=== PATIENT | female | born 1975 | race Caucasian/White ===

== ENCOUNTER 2020-04-14 12:00 | Emergency (ER) | payer BC, SELFPAY ==
[2020-04-14 12:02] VITALS: BP 156/88; PULSE 90; RESP 18; TEMP 36.4; O2SAT 99; BMI 20.7
--- NOTE | 2020-04-14 12:24 | HMH.EDGENADL ---
ED Disposition Clinical Impression: Odontalgia, Dental caries, Dental infection Disposition: Home, Self-Care Condition on Discharge: Good Instructions: DI for Tooth Decay, DI for Dental Pain, Tooth Abscess Additional Instructions: Penicillin as prescribed. Tylenol or ibuprofen for pain. Additional instructions for DENTAL PROBLEMS: See a dentist as soon as possible for further evaluation. Return immediately if you have an uncontrollable fever greater than 102 degrees, difficulty breathing or shortness of breath, persistent vomiting, or inability to swallow. Prescriptions: Penicillin V Potassium 500 mg PO QID #40 tab Transmission Status: Pending to [facility] Referrals: Nicki Jiménez [Primary Care Provider] - - Critical Care Critical Care Time: No Attestation: On , the high probability of a clinically significant, sudden or life threatening deterioration of the following system(s) required my full and direct attention, intervention and personal management. The time I documented below is in addition to time spent performing reported procedures but includes the following listed in this critical care notation. Medical Decision Making - [place] Inquiry Pt receiving controlled substance: No Vital Signs: 04/14/20 12:02 Temperature 97.5 F L Temperature Source Oral Pulse Rate [Right] 90 Respiratory Rate 18 Blood Pressure [Right Arm] 156/88 H Blood Pressure Mean [Right Arm] 110 02 Sat by Pulse Oximetry 99 Orders (Tests/Meds): ED MEDICATIONS Discontinued Medications Generic Name Dose Route Start Last Admin Trade Name Freq PRN Reason Stop Dose Admin Benzocaine/Butamben/Tetracaine HCl 1 gm 04/14/20 12:13 Cetacaine [place] TP 04/14/20 12:14 ONCE ONE Lidocaine HCl 15 ml 04/14/20 12:13 Lidocaine 2% Viscous Solution 15ml Udc PO 04/14/20 12:14 ONCE ONE General Adult HPI - General Chief complaint: Dental/Oral Stated complaint: Tooth infection Time Seen by Provider: 04/14/20 12:24 Mode of Arrival: Ambulatory Limitations: No Limitations Description of Symptoms (Recalled from ER Triage Doc. by RN): Tooth infection on the right side since yesterday. - History of Present Illness HPI narrative: Complains of right mandibular toothache and swelling of the jaw that began yesterday. She has a dental appointment for April 22 in [place]. She would like antibiotics. She says she had an appointment to have her tooth fixed in December, but then the COVID lockdown began. Denies fever. No trouble breathing or swallowing. - Related Data Previous Rx's Medication Instructions Recorded amoxicillin 500 mg capsule 500 mg PO Q12H 10 Days #20 cap 01/04/20 Penicillin V Potassium 500 mg PO QID #40 tab 04/14/20 Allergies Allergy/AdvReac Type Severity Reaction Status Date / Time duloxetine [From Cymbalta] Allergy Verified 01/04/20 11:37 [facility] History - Hepatitis A Screen Drug use history?: No High risk sexual behaviors?: No History of sexually transmitted infection?: No Currently employed?: No Childcare worker?: No Do you have indoor plumbing?: Yes Do you have electricity?: Yes Attestation statement:: This patient has been screened for Hepatitis A risk factors. I have reviewed the patient's past medical history: Yes Medical History: Reports:: Depression Other Surgeries: Yes: No Previous Surgery - Social History Smoking Status: Current every day smoker Tobacco Type: cigarettes Alcohol Intake: never Substance Use Type: denies use Occupational Status: unemployed Housing: house Household Members: family - Psychiatric History Pschychiatric History:: Reports:: Depression Family Hx:: No significant family history ROS Obtained: Yes Systems reviewed as appropriate & no additional complaints - Constitutional Constitutional: Denies fever(s) - ENT Ears, Nose, Mouth, and Throat: Reports dental pain Physical Exam - General General appearance: alert, in
[2020-04-14 12:48] VITALS: BP 156/88; PULSE 90; RESP 18; TEMP 36.4; O2SAT 99
== END 2020-04-14 12:49 | disposition home or self-care (01) ==
PROVIDERS: Emergency Provider Emergency Medicine; PCP Family Medicine
DX: K04.7 Periapical abscess without sinus (principal); K02.9 Dental caries, unspecified
CPT/HCPCS: 99281

== ENCOUNTER 2020-12-23 16:55 | Emergency (ER) | payer BC, SELFPAY ==
[2020-12-23 17:00] VITALS: BP 128/87; PULSE 85; RESP 20; TEMP 36.8; O2SAT 97; BMI 21.6
--- NOTE | 2020-12-23 17:19 | HMH.EDUTC ---
[facility] [place] Clinical Impression: Corneal abrasion Qualifiers: Encounter type: initial encounter Laterality: right Qualified Code(s): S05.01XA - Injury of conjunctiva and corneal abrasion without foreign body, right eye, initial encounter Disposition: Home, Self-Care Condition on Discharge: Good Instructions: DI for Corneal Abrasion Prescriptions: Ofloxacin [Ocuflox 0.3% OPHTH drops 5mL] 5 ml OP QID 7 Days #1 bottle Transmission Status: Pending to [facility] Referrals: Nicki Jiménez [Primary Care Provider] - Forms: Work/School Release Time of Disposition: 17:23 Medical Decision Making - [place] Inquiry Pt receiving controlled substance: No Vital Signs: 12/23/20 17:00 Temperature 98.2 F Temperature Source Oral Pulse Rate [Right Brachial] 85 Respiratory Rate 20 Blood Pressure [Right Arm] 128/87 Blood Pressure Mean [Right Arm] 100 Blood Pressure Source [Right Arm] Automatic Cuff Blood Pressure Position [Right Arm] Sitting 02 Sat by Pulse Oximetry 97 Oxygen Delivery Method Room Air [facility] [place] - General Stated complaint: R eye Irritation Time Seen by Provider: 12/23/20 17:19 Mode of Arrival: Ambulatory Source of Information: Patient Limitations: No Limitations Description of Symptoms (Recalled from Triage Doc. by RN): PATIENT C/O RIGHT EYE IRRITATION SINCE THIS MORNING. SHE DOESN'T RECALL GETTING ANYTHING IN IT, BUT SHE WAS PAINTING YESTERDAY HEENT Symptoms (Recalled from RN notes): Yes Resp Symptoms (Recalled from RN notes): No Skin Symptoms (Recalled from RN notes): No MS Symptoms (Recalled from RN notes): No Functional Status (Recalled from RN notes): WNL - History of Present Illness Provider Complaint: Right eye irritation after painting yesterday. Doesn't recall anything injuring it but has been dry and itchy today. Has been watering and she couldnt drive because she couldn't keep her eye open. Tried Visine and it was painful. Onset (ago): day(s) (1) Location: eyes Relieving factors: none Exacerbating factors: none Treatments prior to arrival: none - Related Data Previous Rx's Medication Instructions Recorded Ofloxacin [Ocuflox 0.3% OPHTH 5 ml OP QID 7 Days #1 bottle 12/23/20 drops 5mL] Allergies Allergy/AdvReac Type Severity Reaction Status Date / Time duloxetine [From Cymbalta] Allergy Verified 01/04/20 11:37 - Worker's Comp Is this a Worker's Comp case?: No [facility] History - Hepatitis A Screen Drug use history?: No High risk sexual behaviors?: No History of sexually transmitted infection?: No Currently employed?: No Childcare worker?: No Do you have indoor plumbing?: Yes Do you have electricity?: Yes Attestation statement:: This patient has been screened for Hepatitis A risk factors. I have reviewed the patient's past medical history: Yes Medical History: Reports:: Depression Other Surgeries: Yes: No Previous Surgery - Social History Smoking Status: Current every day smoker Tobacco Type: cigarettes Alcohol Intake: never Substance Use Type: denies use Occupational Status: other Housing: house Household Members: family - Psychiatric History Pschychiatric History:: Reports:: Depression Family Hx:: No significant family history ROS Obtained: Yes All systems reviewed & no additional complaints - Eyes Eyes: Reports as per HPI Physical Exam - General General appearance: alert, in no apparent distress - Head Head exam: normocephalic - Expanded Eye Exam Sclera/Conjunctival: right: injection - Respiratory Respiratory exam: Present: normal lung sounds bilaterally - Cardiovascular Cardiovascular exam: Present: regular rate, normal rhythm - Neurological Exam Neurological exam: Present: alert, oriented X3 - Psychiatric Psychiatric exam: Present: normal affect, normal mood Procedures - Eye Exam/FB Removal Location: eye (R) Topical anesthetic used: tetracaine Fluorescein Stick(s) used: Yes Procedure performed under: d
[2020-12-23 17:25] VITALS: BP 128/87; PULSE 85; RESP 20; TEMP 36.8; O2SAT 97
== END 2020-12-23 17:30 | disposition home or self-care (01) ==
PROVIDERS: Emergency Provider Physician Assistant; PCP Family Medicine
DX: S05.01XA Injury of conjunctiva and corneal abrasion without foreign body, right eye, initial encounter (principal); F17.210 Nicotine dependence, cigarettes, uncomplicated; Z88.8 Allergy status to other drugs, medicaments and biological substances
CPT/HCPCS: 99202; G0463

== ENCOUNTER 2021-02-12 13:02 | Emergency (ER) | payer BC, SELFPAY ==
--- NOTE | 2021-02-12 13:26 | ED_ITS ---
[facility] [place] Disposition Clinical Impression: Sinusitis Qualifiers: Sinusitis location: maxillary Chronicity: acute Recurrence: non-recurrent Qualified Code(s): J01.00 - Acute maxillary sinusitis, unspecified Disposition: Home, Self-Care Condition on Discharge: Good Instructions: DI for Sinusitis Prescriptions: Amoxicillin/Potassium Clav [Augmentin 875-125 Tablet] 1 tab PO Q12H 10 Days #20 tab Transmission Status: Pending to [facility] predniSONE [Prednisone 20mg Tab] 20 mg PO BID 5 Days #10 tab Transmission Status: Pending to [facility] Referrals: Nicki Jiménez [Primary Care Provider] - Time of Disposition: 13:30 Medical Decision Making - [place] Inquiry Pt receiving controlled substance: No [facility] [place] HPI - General Stated complaint: head congestion Time Seen by Provider: 02/12/21 13:28 - History of Present Illness Provider Complaint: Sinus pain and pressure, congestion, dental pain X 2 weeks. Ears are painful and feel full. Throat is scratchy. No fever. Onset (ago): week(s) (2) Location: head, face Relieving factors: none Exacerbating factors: none Associated symptoms: denies other symptoms Treatments prior to arrival: none - Related Data Previous Rx's Medication Instructions Recorded Ofloxacin [Ocuflox 0.3% OPHTH 5 ml OP QID 7 Days #1 bottle 12/23/20 drops 5mL] Amoxicillin/Potassium Clav 1 tab PO Q12H 10 Days #20 tab 02/12/21 [Augmentin 875-125 Tablet] predniSONE [Prednisone 20mg 20 mg PO BID 5 Days #10 tab 02/12/21 Tab] Allergies Allergy/AdvReac Type Severity Reaction Status Date / Time duloxetine [From Cymbalta] Allergy Verified 01/04/20 11:37 [facility] History - Hepatitis A Screen Attestation statement:: This patient has been screened for Hepatitis A risk factors. I have reviewed the patient's past medical history: Yes Medical History: Reports:: Depression Other Surgeries: Yes: No Previous Surgery - Social History Smoking Status: Current every day smoker Tobacco Type: cigarettes Alcohol Intake: never Substance Use Type: denies use Occupational Status: other Housing: house Household Members: family - Psychiatric History Pschychiatric History:: Reports:: Depression Family Hx:: No significant family history ROS Obtained: Yes All systems reviewed & no additional complaints - ENT Ears, Nose, Mouth, and Throat: Reports headache(s), Reports nasal congestion, Reports sinus pain, Reports sore throat Physical Exam - General General appearance: alert, in no apparent distress - Head Head exam: normocephalic - Eye Eye exam: Present: PERRL - ENT ENT exam: Present: normal oropharynx - Expanded ENT Exam TM/Canal exam: Bilateral TM: erythema Nose exam: Present: sinus tenderness - Respiratory Respiratory exam: Present: normal lung sounds bilaterally - Cardiovascular Cardiovascular exam: Present: regular rate, normal rhythm - Neurological Exam Neurological exam: Present: alert, oriented X3 - Psychiatric Psychiatric exam: Present: normal affect, normal mood - Skin Skin exam: Present: warm, dry, intact
[2021-02-12 13:27] VITALS: BP 156/81; PULSE 91; RESP 16; TEMP 36.7; O2SAT 99; BMI 21.9
[2021-02-12 13:32] VITALS: BP 156/81; PULSE 91; RESP 16; TEMP 36.7; O2SAT 99
== END 2021-02-12 13:34 | disposition home or self-care (01) ==
PROVIDERS: Emergency Provider Physician Assistant; PCP Family Medicine
DX: J01.00 Acute maxillary sinusitis, unspecified (principal); F33.1 Major depressive disorder, recurrent, moderate
CPT/HCPCS: 99202; G0463

== ENCOUNTER → 2021-04-11 15:28 | Outpatient (POV) | payer BC, SELFPAY | PROVIDERS: Visit Provider Dermatology | DX: Z00.00 Encounter for general adult medical examination without abnormal findings (principal) ==

== ENCOUNTER 2021-04-12 04:34 | Emergency (ER) | payer BC, SELFPAY ==
[2021-04-12 04:40] VITALS: BP 174/97; PULSE 81; RESP 17; TEMP 36.6; O2SAT 97; BMI 22.4
--- NOTE | 2021-04-12 04:50 | HMH.EDDENT ---
ED Disposition Clinical Impression: Pain, dental Fracture of tooth Qualifiers: Encounter type: initial encounter Fracture type: closed Qualified Code(s): S02.5XXA - Fracture of tooth (traumatic), initial encounter for closed fracture Disposition: Home, Self-Care Condition on Discharge: Good Instructions: DI for Dental Pain Additional Instructions: see pcp and dentist for follow up Prescriptions: Ketorolac Tromethamine [Toradol 10mg tablet] 10 mg PO Q6HP PRN #10 tab MDD 40mg/day PRN Reason: Moderate To Severe Pain Transmission Status: Pending to [facility] Referrals: Nicki Jiménez [Primary Care Provider] - - Critical Care Critical Care Time: No Attestation: On 04/12/21, the high probability of a clinically significant, sudden or life threatening deterioration of the following system(s) required my full and direct attention, intervention and personal management. The time I documented below is in addition to time spent performing reported procedures but includes the following listed in this critical care notation. Medical Decision Making - Medical Records Medical records reviewed: Yes: I reviewed the patient's medical records. - [place] Inquiry Pt receiving controlled substance: No Vital Signs: 04/12/21 04:40 Temperature 97.8 F Temperature Source Oral Pulse Rate [Right Brachial] 81 Respiratory Rate 17 Blood Pressure [Right Arm] 174/97 H Blood Pressure Mean [Right Arm] 122 Blood Pressure Source [Right Arm] Automatic Cuff Blood Pressure Position [Right Arm] Sitting 02 Sat by Pulse Oximetry 97 Oxygen Delivery Method Room Air - Lab Data Lab results reviewed: Yes: I reviewed the patient's lab results. Orders (Tests/Meds): ED MEDICATIONS Discontinued Medications Generic Name Dose Route Start Last Admin Trade Name Freq PRN Reason Stop Dose Admin Lidocaine HCl 15 ml 04/12/21 04:46 Lidocaine 2% Viscous [place] 15ml Udc PO 04/12/21 04:47 ONCE ONE Medical Decision Narrative: please see dentist Dental HPI - General Chief complaint: Dental/Oral Stated complaint: broken tooth Time Seen by Provider: 04/12/21 04:45 Mode of Arrival: Family Vehicle Source of Information: Patient, Significant Other, Medical Record Limitations: No Limitations Description of Symptoms (Recalled from ER Triage Doc. by RN): left lower jaw dental fracture while eating cheerios last night. 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 - History of Present Illness HPI Narrative: has acute dental pain as she has lt lower dental fracture which occurred tonight assoc with eating MD Complaint: tooth pain Onset (ago): hour(s) Severity: moderate Treatment prior to arrival: none - Related Data Home Medications Medication Instructions Recorded Confirmed ALPRAZolam [Xanax 0.5mg tab] 0.5 mg PO TIDP PRN 04/12/21 04/12/21 Buspirone HCl [Buspar 10mg 10 mg PO BID 04/12/21 04/12/21 tablet] Previous Rx's Medication Instructions Recorded Ketorolac Tromethamine [Toradol 10 mg PO Q6HP PRN #10 tab MDD 04/12/21 10mg tablet] 40mg/day Allergies Allergy/AdvReac Type Severity Reaction Status Date / Time duloxetine [From Cymbalta] Allergy Verified 01/04/20 11:37 [facility] History - Hepatitis A Screen Drug use history?: No High risk sexual behaviors?: No History of sexually transmitted infection?: No Currently employed?: No Childcare worker?: No Do you have indoor plumbing?: Yes Do you have electricity?: Yes Attestation statement:: This patient has been screened for Hepatitis A risk factors. I have reviewed the patient's past medical history: Yes Medical History: Reports:: Depression Other Surgeries: Yes: No Previous Surgery - Social History Smoking Status: Never smoker Tobacco Type: cigarettes Alcohol Intake: never Substance Use Type: denies use Occupational Status: other Housing: house Household Members: family - Psychiatric History
[2021-04-12 04:58] VITALS: BP 168/88; PULSE 78; RESP 16; TEMP 36.6; O2SAT 98
== END 2021-04-12 05:04 | disposition home or self-care (01) ==
PROVIDERS: Emergency Provider Emergency Medicine; PCP Family Medicine
DX: S02.5XXA Fracture of tooth (traumatic), initial encounter for closed fracture (principal); K08.89 Other specified disorders of teeth and supporting structures
CPT/HCPCS: 96372; 99281

== ENCOUNTER → 2021-04-18 13:50 | Outpatient (POV) | payer BC, SELFPAY | PROVIDERS: Visit Provider Dermatology | DX: Z00.00 Encounter for general adult medical examination without abnormal findings (principal) ==

== ENCOUNTER 2021-09-24 15:03 | Emergency (ER) | payer BC, SELFPAY ==
[2021-09-24 15:34] VITALS: BP 0/0; PULSE 0; RESP 0; TEMP -17.7; TEMP 0
== END 2021-09-24 15:36 | disposition left against medical advice (07) ==
LOC: UTC 15:05
PROVIDERS: Emergency Provider Nurse Practitioner Family; PCP Family Medicine
DX: Z53.21 Procedure and treatment not carried out due to patient leaving prior to being seen by health care provider (principal)

== ENCOUNTER 2024-06-13 14:50 | Emergency (ER) | payer BC, SELFPAY ==
[2024-06-13 14:55] VITALS: BP 166/85; PULSE 110; RESP 20; TEMP 36.6; O2SAT 98; BMI 21.6
--- NOTE | 2024-06-13 15:10 | EXP.UTC ---
Discharge Plan Disposition Patient Disposition: Home, Self-Care Condition: Good Prescriptions Prescriptions: New ofloxacin 0.3 % drops 10 drp otic (ear) BID 7 Days Qty: 5 0RF sulfamethoxazole-trimethoprim [Bactrim DS] 800-160 mg tablet 1 tab PO Q12H Qty: 14 0RF fluconazole 150 mg tablet 150 mg PO Q3D Qty: 2 0RF Referrals Follow up/Referrals: Nicki Jiménez MD [Primary Care Provider] - See instructions Clinical Impressions Clinical Impression: Otitis externa Instructions Patient Instructions: DI for Otitis Externa Print Language Print Language: Georgian Discharge ED Provider: Pina Isaacs [facility] [place] HPI General Stated complaint: sore throat ear pain Mode of Arrival: Ambulatory Source of Information: Patient Limitations: No Limitations Time Seen by Provider: 06/13/24 15:13 Description of Symptoms (Recalled from Triage Doc. by RN): PATIENT C/O BILATERAL EAR PAIN THAT STARTED YESTERDAY HEENT Symptoms (Recalled from RN notes): Yes Resp Symptoms (Recalled from RN notes): No Skin Symptoms (Recalled from RN notes): No MS Symptoms (Recalled from RN notes): No Functional Status (Recalled from RN notes): WNL History of Present Illness Provider Complaint: Bilateral ear pain after wearing different ear plugs at work Onset (ago): day(s) (1) Relieving factors: none Exacerbating factors: none Associated symptoms: denies other symptoms Treatments prior to arrival: none Related Data Previous Rx's ?Medication ?Instructions ?Recorded fluconazole 150 mg tablet 150 mg PO Q3D 2 doses #2 tabs 06/13/24 ofloxacin 0.3 % ear drops 10 drp otic (ear) BID 7 days #5 mL 06/13/24 sulfamethoxazole 800 1 tab PO Q12H #14 tabs 06/13/24 mg-trimethoprim 160 mg tablet (Bactrim DS) Allergies Allergy/AdvReac Type Severity Reaction Status Date / Time duloxetine [From Cymbalta] Allergy Verified 09/24/21 15:45 Worker's Comp Is this a Worker's Comp case?: No [facility] Disclaimer: The information contained in this section may have been updated after the patient was seen, as this information can be updated by other users. Medical History (Updated 06/13/24 @ 15:16 by ZAIN Coles) Anxiety Social History Smoking Status: Current some day smoker tobacco type: cigarettes second hand exposure: No alcohol intake: never substance use type: denies use current occupational status: other Travel in the last 8 weeks: None household members: family housing: house ROS Obtained: Yes All systems reviewed & no additional complaints except as documented ENT Ears, Nose, Mouth, and Throat: Reports otalgia Physical Exam General General appearance: alert and in no apparent distress Head Head exam: atraumatic, normocephalic and normal inspection Eye Eye exam: Present normal appearance, PERRL and EOMI ENT ENT exam: Present normal exam, normal oropharynx and mucous membranes moist Expanded ENT Exam External ear exam: Present pain with movement and external tenderness TM/Canal exam: Bilateral TM: effusion Neck Neck exam: Present normal inspection, full ROM and trachea midline; Absent meningismus or lymphadenopathy Chest Chest inspection: Present normal inspection and symmetric chest wall rise; Absent tenderness Respiratory Respiratory exam: Present normal lung sounds bilaterally; Absent respiratory distress Cardiovascular Cardiovascular exam: Present regular rate and normal rhythm; Absent JVD Abdominal Exam Abdominal exam: Present soft and normal bowel sounds; Absent distention, tenderness or guarding Extremities Exam Extremities exam: Present normal inspection, full ROM and normal capillary refill; Absent calf tenderness Back Exam Back exam: Present normal inspection; Absent tenderness Neurological Exam Neurological exam: Present alert and oriented X3 Psychiatric Psychiatric exam: Present normal affect and normal mood Skin Skin exam: Present warm, dry, intact and normal color Lymph
[2024-06-13 15:17] VITALS: BP 166/85; PULSE 110; RESP 20; TEMP 36.6; O2SAT 98
== END 2024-06-13 15:19 | disposition home or self-care (01) ==
PROVIDERS: Emergency Provider Physician Assistant; PCP Family Medicine
DX: H60.93 Unspecified otitis externa, bilateral (principal)
CPT/HCPCS: 99212; 99214; G0463